=== PATIENT | male | born 1965 | race Caucasian/White ===

== ENCOUNTER 2016-11-24 18:33 | Emergency (ER) | payer OTHER ==
[~2016-11-24] VITALS: Ht 180.3 cm; Wt 111.3 kg
[~2016-11-24 18:33] MED LIST: AMBIEN5 MG PO; AMOXICILLIN500 M1 PO; AMRIX15 MG PO; AUGMENTIN875 MG PO; CLINDAMYCIN HC150 MG PO; CLINDAMYCIN HC300 MG PO; DICLOFENAC SODI75 MG PO; FLEXERIL10 MG PO; HYDROCODON-ACE1 EAC7 PO; LORTAB 5-325 M1 EACH PO; LUNESTA1 MG PO; MOTRIN800 MG PO; NEURONTIN100 MG PO; NEURONTIN300 MG PO; NEURONTIN600 MG PO; NORCO 5/3251 TABLET PO; OMEPRAZOLE40 M1 PO; OXYCODONE HCL10 MG PO; OXYCODONE HCL15 MG PO; PERCOCET 5/31 TABLET PO; PERCOCET 7.5-31 EACH PO; PERCOCET 7.5-51 EACH PO; PERIDEX1 ML MM; ROXICODONE5 MG PO; VALIUM5 MG PO; VYVANSE30 MG PO; VYVANSE50 MG PO; XANAX0.5 MG PO; ZOLOFT100 MG PO; ZOLOFT50 MG PO
[2016-11-24 22:46] LABS: EOSINOPHIL (%) 1.3 % (0-5); EOSINOPHIL COUNT 0.1 K/uL (0-0.3); HEMATOCRIT 45.8 % (38.0-50.0); IMMATURE GRANULOCYTE (%) 0.5 % (0.0-0.7); LYMPHOCYTE COUNT 2.8 K/uL (1.0-2.8); MCH 30.8 PG (29.0-34.0); MCHC 32.5 G/DL (30.0-36.0); MCV 94.6 FL (86-99); MEAN PLAT.VOLUME 10.2 uM^3 (9.0-12.4); MONOCYTE COUNT 0.7 K/uL (0-0.8); NEUTROPHIL (%) 52.3 % (45-76); PLATELET COUNT 270 K/uL (156-360); RBC DIS.WIDTH-CV 13.7 % (11.8-14.6); RBC DIS.WIDTH-SD 47.9 % (39-53); RED BLOOD COUNT 4.84 M/uL (4.00-5.50); WHITE BLOOD COUNT 7.7 K/uL (4.1-10.2)
[2016-11-24 22:56] LABS: CHLORIDE 103 mEq/L (99-109); POTASSIUM 4.2 mEq/L (3.7-5.4); SODIUM 139 mEq/L (136-147)
[2016-11-24 22:58] LABS: GLUCOSE 85 mg/dL (70-99)
[2016-11-24 22:59] LABS: ANION GAP 11 MEQ/L (2-14)
[2016-11-24 23:01] LABS: GFR ESTIMATE (CALCULATED) 53 mL/min/
[2016-11-24 23:02] LABS: UREA NITROGEN (BUN) 13 mg/dL (9-23)
[2016-11-24 23:08] LABS: TROP-I INTERPRETATION NEGATIVE; TROPONIN-I < 0.01 ng/mL (0.0-0.30)
[2016-11-24] MEDS ORDERED: XANAX0.5 MG PO (23:19)
[2016-11-24] MEDS ORDERED: KADIAN10 MG PO (23:25)
[2016-11-24 23:26] VITALS: BP 127/93
== END 2016-11-24 23:31 | disposition home or self-care (01) ==
LOC: EME 18:33
PROVIDERS: Emergency Medicine
DX: F41.0 Panic disorder [episodic paroxysmal anxiety] (principal); G89.29 Other chronic pain; M25.561 Pain in right knee; M25.562 Pain in left knee; Z63.4 Disappearance and death of family member; Z96.652 Presence of left artificial knee joint
CPT/HCPCS: 71020; 73564; 80048; 84484; 85025; 93005; 99281; 99284; J2270

== ENCOUNTER 2016-12-23 01:44 | Emergency (ER) | payer OTHER ==
[~2016-12-23] VITALS: Ht 180.3 cm; Wt 112.3 kg
[~2016-12-23 01:44] MED LIST changes: +KADIAN10 MG PO
[2016-12-23 02:51] LABS: HEMATOCRIT 41.9 % (38.0-50.0); MCH 31.7 PG (29.0-34.0); MCHC 33.7 G/DL (30.0-36.0); MCV 94.2 FL (86-99); MEAN PLAT.VOLUME 9.9 uM^3 (9.0-12.4); PLATELET COUNT 252 K/uL (156-360); RBC DIS.WIDTH-CV 13.6 % (11.8-14.6); RED BLOOD COUNT 4.45 M/uL (4.00-5.50); WHITE BLOOD COUNT 5.7 K/uL (4.1-10.2)
[2016-12-23 03:02] LABS: CHLORIDE 107 mEq/L (99-109); MAGNESIUM 2.1 mg/dL (1.3-2.7); POTASSIUM 4.4 mEq/L (3.7-5.4); SODIUM 140 mEq/L (136-147)
[2016-12-23 03:04] LABS: GLUCOSE 91 mg/dL (70-99)
[2016-12-23 03:05] LABS: ANION GAP 9 MEQ/L (2-14)
[2016-12-23 03:06] LABS: TOTAL BILIRUBIN 0.2 mg/dL (0.0-1.0)
[2016-12-23 03:08] LABS: ALKALINE PHOSPHATASE 66 IU/L (3-129); GFR ESTIMATE (CALCULATED) > 59 mL/min/
[2016-12-23 03:09] LABS: UREA NITROGEN (BUN) 8 mg/dL (9-23)
[2016-12-23 03:31] VITALS: BP 104/90
== END 2016-12-23 03:31 | disposition home or self-care (01) ==
LOC: EME 01:44
PROVIDERS: Emergency Medicine
DX: G25.81 Restless legs syndrome (principal); G89.29 Other chronic pain; M25.461 Effusion, right knee; Z76.5 Malingerer [conscious simulation]
CPT/HCPCS: 80053; 83735; 84100; 85027; 99281; 99283; J1885

== ENCOUNTER 2016-12-31 21:15 | Emergency (ER) | payer OTHER ==
[~2016-12-31] VITALS: Ht 180.3 cm; Wt 113.1 kg
[2016-12-31] MEDS ORDERED: OXYCONTIN10 MG PO (21:55)
[2016-12-31] MEDS ORDERED: KLONOPIN0.5 M1 PO (21:55)
[2016-12-31 22:25] VITALS: BP 159/103
== END 2016-12-31 22:26 | disposition home or self-care (01) ==
LOC: EME 21:15
DX: M17.11 Unilateral primary osteoarthritis, right knee (principal); F41.9 Anxiety disorder, unspecified
CPT/HCPCS: 99281; 99284

== ENCOUNTER 2017-03-20 16:23 | Emergency (ER) | payer OTHER ==
[~2017-03-20] VITALS: Ht 180.3 cm; Wt 118.1 kg
[~2017-03-20 16:23] MED LIST changes: +KLONOPIN0.5 M1 PO; +OXYCONTIN10 MG PO
[2017-03-20 17:31] VITALS: BP 144/89
== END 2017-03-20 17:49 | disposition home or self-care (01) ==
LOC: EME 16:23
DX: G57.92 Unspecified mononeuropathy of left lower limb (principal); G25.81 Restless legs syndrome; Z96.652 Presence of left artificial knee joint
CPT/HCPCS: 99281; 99284; J3360

== ENCOUNTER 2017-03-24 08:07 | Emergency (ER) | payer OTHER ==
[~2017-03-24] VITALS: Ht 180.3 cm; Wt 118.3 kg
[2017-03-24] MEDS ORDERED: PERCOCET 5/31 TABLET PO (09:04)
[2017-03-24 10:00] LABS: CHLORIDE 105 mEq/L (99-109); POTASSIUM 4.4 mEq/L (3.7-5.4); SODIUM 140 mEq/L (136-147)
[2017-03-24 10:01] LABS: MAGNESIUM 2.1 mg/dL (1.3-2.7)
[2017-03-24 10:02] LABS: GLUCOSE 105 mg/dL (70-99)
[2017-03-24 10:03] LABS: ANION GAP 10 MEQ/L (2-14)
[2017-03-24 10:06] LABS: GFR ESTIMATE (CALCULATED) > 59 mL/min/
[2017-03-24 10:07] LABS: UREA NITROGEN (BUN) 11 mg/dL (9-23)
[2017-03-24 11:01] VITALS: BP 144/98
== END 2017-03-24 11:02 | disposition home or self-care (01) ==
LOC: EME 08:07
PROVIDERS: Physician Assistant
DX: M62.831 Muscle spasm of calf (principal); G25.81 Restless legs syndrome; F90.9 Attention-deficit hyperactivity disorder, unspecified type; Z96.652 Presence of left artificial knee joint
CPT/HCPCS: 80048; 83735; 99281; 99284; J2060

== ENCOUNTER 2017-04-02 03:38 | Emergency (ER) | payer OTHER ==
[~2017-04-02] VITALS: Ht 180.3 cm; Wt 117.8 kg
[2017-04-02] MEDS ORDERED: VALIUM2 MG PO (04:22)
[2017-04-02 04:51] VITALS: BP 133/93
== END 2017-04-02 04:56 | disposition home or self-care (01) ==
LOC: EME 03:38
DX: G25.81 Restless legs syndrome (principal)
CPT/HCPCS: 99281; 99284; J2060

== ENCOUNTER 2017-04-11 02:09 | Emergency (ER) | payer OTHER ==
[~2017-04-11] VITALS: Ht 180.3 cm; Wt 121.2 kg
[~2017-04-11 02:09] MED LIST changes: +VALIUM2 MG PO
[2017-04-11 03:36] VITALS: BP 102/90
== END 2017-04-11 03:36 | disposition home or self-care (01) ==
LOC: EME 02:09
DX: R25.2 Cramp and spasm (principal); G25.81 Restless legs syndrome
CPT/HCPCS: 99281; 99283; J1885; Q0177

== ENCOUNTER 2017-06-26 15:46 | Emergency (ER) | payer OTHER | END 2017-06-26 16:34 | disposition left against medical advice (07) | LOC: EME 15:46 | DX: K04.7 Periapical abscess without sinus (principal); Z53.21 Procedure and treatment not carried out due to patient leaving prior to being seen by health care provider ==

== ENCOUNTER 2017-08-19 21:21 | Emergency (ER) | payer OTHER ==
[~2017-08-19] VITALS: Ht 180.3 cm; Wt 114.0 kg
[2017-08-20] MEDS ORDERED: PREDNISONE20 MG PO (00:12)
[2017-08-20] MEDS ORDERED: LIDODERM 5% P1 PATCH TD (00:16)
[2017-08-20 00:22] VITALS: BP 124/77
== END 2017-08-20 00:23 | disposition home or self-care (01) ==
LOC: EME 21:21
DX: G89.29 Other chronic pain (principal); M54.2 Cervicalgia; M25.561 Pain in right knee; W00.0XXA Fall on same level due to ice and snow, initial encounter; M47.892 Other spondylosis, cervical region
CPT/HCPCS: 72040; 99281; 99284; J7512

== ENCOUNTER 2017-08-22 15:43 | Emergency (ER) | payer OTHER ==
[~2017-08-22] VITALS: Ht 180.3 cm; Wt 113.4 kg
[~2017-08-22 15:43] MED LIST changes: +LIDODERM 5% P1 PATCH TD; +PREDNISONE20 MG PO
[2017-08-22] MEDS ORDERED: LIDODERM 5% P1 PATCH TD (17:47)
[2017-08-22] MEDS ORDERED: PREDNISONE20 MG PO (17:47)
[2017-08-22] MEDS ORDERED: GABAPENTIN100 MG PO (17:47)
[2017-08-22 18:23] VITALS: BP 103/81
== END 2017-08-22 18:25 | disposition home or self-care (01) ==
LOC: EME 15:43
DX: M54.2 Cervicalgia (principal); G89.29 Other chronic pain; Z76.0 Encounter for issue of repeat prescription; Z88.6 Allergy status to analgesic agent
CPT/HCPCS: 99281; 99284; J7512

== ENCOUNTER 2017-10-10 17:04 | Inpatient (IN) | payer OTHER ==
[~2017-10-10] VITALS: Ht 180.3 cm; Wt 117.3 kg
[~2017-10-10 17:04] MED LIST changes: -AMRIX15 MG PO; +GABAPENTIN100 MG PO; -LUNESTA1 MG PO; +LUNESTA3 MG PO
[2017-10-10 19:00] LABS: HEMATOCRIT 39.1 % (38.0-50.0); HEMOGLOBIN 13.6 G/DL (12.5-16.6); MCH 33.7 PG (29.0-34.0); MCHC 34.8 G/DL (30.0-36.0); PLATELET COUNT 154 K/uL (156-360); RBC DIS.WIDTH-CV 13.5 % (11.8-14.6); RBC DIS.WIDTH-SD 48.8 % (39-53); RED BLOOD COUNT 4.03 M/uL (4.00-5.50); WHITE BLOOD COUNT 7.4 K/uL (4.1-10.2)
[2017-10-10 19:11] LABS: PTT 26.8 SEC (25-37)
[2017-10-10 19:14] LABS: CHLORIDE 103 mEq/L (99-109); SODIUM 136 mEq/L (136-147)
[2017-10-10 19:16] LABS: GLUCOSE 81 mg/dL (70-99)
[2017-10-10 19:19] LABS: CREATININE 2.3 mg/dL (0.6-1.3); GFR ESTIMATE (CALCULATED) 32 mL/min/ (58.99-99999)
[2017-10-10 19:20] LABS: UREA NITROGEN (BUN) 27 mg/dL (9-23)
[2017-10-10 19:23] LABS: TROP-I INTERPRETATION NEGATIVE; TROPONIN-I < 0.01 ng/mL (0.0-0.30)
[2017-10-10] MEDS ORDERED: CORRECTOL5 M1 PO (21:02)
[2017-10-10] MEDS ORDERED: GABAPENTIN600 MG PO (21:04)
[2017-10-10] MEDS ORDERED: FOLIC ACID0.4 MG PO (21:06)
[2017-10-10] MEDS ORDERED: MORPHINE SULFAT15 MG PO (21:07)
[2017-10-10] MEDS ORDERED: ATARAX,VISTARIL50 MG PO (21:10)
[2017-10-10] MEDS ORDERED: CLONAZEPAM1 MG PO (21:12)
[2017-10-10] MEDS ORDERED: REQUIP0.5 MG PO (21:13)
[2017-10-10] MEDS ORDERED: ZESTRIL40 MG PO (21:13)
[2017-10-10 21:40] LABS: MAGNESIUM 2.4 mg/dL (1.3-2.7)
[2017-10-10 22:00] VITALS: BP 120/75
[2017-10-10 23:48] VITALS: BP 113/56
[2017-10-11 04:14] VITALS: BP 128/69
[2017-10-11 06:59] LABS: HEMATOCRIT 37.9 % (38.0-50.0); HEMOGLOBIN 12.5 G/DL (12.5-16.6); MCH 32.7 PG (29.0-34.0); MCV 99.2 FL (86-99); PLATELET COUNT 137 K/uL (156-360); RBC DIS.WIDTH-CV 13.8 % (11.8-14.6); RBC DIS.WIDTH-SD 50.4 % (39-53); RED BLOOD COUNT 3.82 M/uL (4.00-5.50); WHITE BLOOD COUNT 5.4 K/uL (4.1-10.2)
[2017-10-11 07:28] LABS: ALBUMIN 3.4 G/DL (3.2-4.8); CHLORIDE 109 MEQ/L (99-109); GFR ESTIMATE (CALCULATED) 45 mL/min/ (58.99-99999); PHOSPHORUS 3.3 mg/dL (2.5-4.9); POTASSIUM 4.4 MEQ/L (3.7-5.4); SODIUM 140 MEQ/L (136-147); UREA NITROGEN (BUN) 22 mg/dL (9-23)
[2017-10-11 07:29] LABS: CREATININE 1.7 MG/DL (0.6-1.3); GLUCOSE 109 mg/dL (70-99)
[2017-10-11 07:39] VITALS: BP 109/64
[2017-10-11 11:28] VITALS: BP 111/59
[2017-10-11 15:39] VITALS: BP 112/71
[2017-10-11 19:20] VITALS: BP 121/72
[2017-10-11 22:34] VITALS: BP 132/81
[2017-10-12] VITALS (9 sets, daily range): BP systolic 119–167; BP diastolic 73–95
[2017-10-12 04:37] LABS: APPEARANCE CLEAR ((CLEAR)); BILIRUBIN NEGATIVE; BLOOD NEGATIVE; COLOR STRAW ((YELLOW)); GLUCOSE (STRIP) NEGATIVE; KETONES NEGATIVE; LEUKOCYTES NEGATIVE; NITRITE NEGATIVE; PROTEIN (STRIP) NEGATIVE; SPECIFIC GRAVITY 1.005 (1.000-1.030); UCUL ADDED? NO; UROBILINOGEN 0.2 MG/DL (0.2-1.0)
[2017-10-12 04:54] LABS: BENZODIAZEPINES, URINE SCREEN POSITIVE (200 ng/mL)
[2017-10-12 06:27] LABS: HEMATOCRIT 37.1 % (38.0-50.0); HEMOGLOBIN 12.4 G/DL (12.5-16.6); MCH 33.5 PG (29.0-34.0); MCHC 33.4 G/DL (30.0-36.0); MCV 100.3 FL (86-99); PLATELET COUNT 120 K/uL (156-360); RBC DIS.WIDTH-CV 13.5 % (11.8-14.6); RBC DIS.WIDTH-SD 50.2 % (39-53); WHITE BLOOD COUNT 4.4 K/uL (4.1-10.2)
[2017-10-12 06:58] LABS: ALBUMIN 3.2 G/DL (3.2-4.8); ALKALINE PHOSPHATASE 44 IU/L (3-129); ALT (GPT) 22 IU/L (3-49); AST (GOT) 17 IU/L (2-34); CHLORIDE 108 MEQ/L (99-109); GFR ESTIMATE (CALCULATED) > 59 mL/min/ (58.99-99999); GLUCOSE 83 mg/dL (70-99); MAGNESIUM 1.9 mg/dl (1.3-2.7); POTASSIUM 5.1 MEQ/L (3.7-5.4); SODIUM 139 MEQ/L (136-147); TOTAL BILIRUBIN 0.3 MG/DL (0.0-1.0); TOTAL PROTEIN 5.7 G/DL (6.4-8.3); UREA NITROGEN (BUN) 14 mg/dL (9-23)
[2017-10-12 07:06] LABS: CREATININE 1.1 MG/DL (0.6-1.3)
[2017-10-13] VITALS (7 sets, daily range): BP systolic 118–154; BP diastolic 74–95
[2017-10-13] MEDS ORDERED: OXYCODONE HCL10 MG PO (11:10)
[2017-10-13] MEDS ORDERED: AMLODIPINE BESYL5 MG PO (12:09)
== END 2017-10-13 13:15 | disposition home or self-care (01) | DRG 683 ==
LOC: EME 17:04 → 2EAST 20:37 → EDOF 20:37 → ENRESERV 20:41 → 2EAST 21:52
PROVIDERS: Internal Medicine; Nurse Practitioner Acute Care; Nurse Practitioner Adult Health
DX: N17.9 Acute kidney failure, unspecified (principal); R55 Syncope and collapse; G89.29 Other chronic pain; S09.90XA Unspecified injury of head, initial encounter; S40.019A Contusion of unspecified shoulder, initial encounter; W07.XXXA Fall from chair, initial encounter; F90.9 Attention-deficit hyperactivity disorder, unspecified type; G25.81 Restless legs syndrome; M19.019 Primary osteoarthritis, unspecified shoulder; Z96.652 Presence of left artificial knee joint; Z79.899 Other long term (current) drug therapy; Z79.891 Long term (current) use of opiate analgesic; E80.1 Porphyria cutanea tarda; Z68.36 Body mass index [BMI] 36.0-36.9, adult; F43.10 Post-traumatic stress disorder, unspecified; I10 Essential (primary) hypertension
CPT/HCPCS: 70450; 70551; 71046; 72125; 73030; 80048; 80053; 80069; 80306 90; 81003; 83735; 84484; 85027; 85610; 85730; 93005; 93880; 95819; 99281; 99285; J1644; J2270; J7030; Q0177

== ENCOUNTER 2017-10-18 17:13 | Emergency (ER) | payer OTHER ==
[~2017-10-18] VITALS: Ht 180.3 cm; Wt 114.3 kg
[~2017-10-18 17:13] MED LIST changes: +AMLODIPINE BESYL5 MG PO; +ATARAX,VISTARIL50 MG PO; +CLONAZEPAM1 MG PO; +CORRECTOL5 M1 PO; +FOLIC ACID0.4 MG PO; +GABAPENTIN600 MG PO; +MORPHINE SULFAT15 MG PO; +REQUIP0.5 MG PO; +ZESTRIL40 MG PO
[2017-10-18 19:12] LABS: HEMATOCRIT 40.2 % (38.0-50.0); HEMOGLOBIN 14.1 G/DL (12.5-16.6); MCH 34.1 PG (29.0-34.0); MCHC 35.1 G/DL (30.0-36.0); MCV 97.1 FL (86-99); RBC DIS.WIDTH-CV 13.5 % (11.8-14.6); RBC DIS.WIDTH-SD 48.3 % (39-53); RED BLOOD COUNT 4.14 M/uL (4.00-5.50); WHITE BLOOD COUNT 7.8 K/uL (4.1-10.2)
[2017-10-18 19:16] LABS: PLATELET COUNT 161 K/uL (156-360)
[2017-10-18 19:22] LABS: CHLORIDE 104 mEq/L (99-109); POTASSIUM 4.1 mEq/L (3.7-5.4); SODIUM 140 mEq/L (136-147)
[2017-10-18 19:23] LABS: GLUCOSE 88 mg/dL (70-99)
[2017-10-18 19:27] LABS: CREATININE 1.3 mg/dL (0.6-1.3); GFR ESTIMATE (CALCULATED) > 59 mL/min/ (58.99-99999)
[2017-10-18 19:28] LABS: UREA NITROGEN (BUN) 11 mg/dL (9-23)
[2017-10-18 19:37] LABS: APPEARANCE CLEAR ((CLEAR)); BILIRUBIN NEGATIVE; BLOOD NEGATIVE; COLOR YELLOW ((YELLOW)); GLUCOSE (STRIP) NEGATIVE; KETONES NEGATIVE; LEUKOCYTES TRACE; NITRITE NEGATIVE; PROTEIN (STRIP) NEGATIVE; SPECIFIC GRAVITY 1.011 (1.000-1.030); UROBILINOGEN 0.2 MG/DL (0.2-1.0)
[2017-10-18 19:42] LABS: BACTERIA RARE /HPF; EPITHELIAL CELLS RARE /HPF; HYALINE CASTS 30-40 /LPF; MUCUS 3+ /LPF; RED BLOOD CELLS 0-5 /HPF (0-5)
[2017-10-18 19:57] LABS: AMPHETAMINE NEGATIVE (500 ng/mL); BARBITURATES NEGATIVE (200 ng/mL); BENZODIAZEPINES PRESUMPTIVE POSITIVE (150 ng/mL); BUPRENORPHINE NEGATIVE (10 ng/mL); COCAINE NEGATIVE (150 ng/mL); METHADONE NEGATIVE (200 ng/mL); METHAMPHETAMINE NEGATIVE (500 ng/mL); OPIATES (MORPHINE) NEGATIVE (100 ng/mL); OXYCODONE NEGATIVE (100 ng/mL); PHENCYCLIDINE NEGATIVE (25 ng/mL); PROPOXYPHENE NEGATIVE (300 ng/mL); THC CANNABINOIDS PRESUMPTIVE POSITIVE (50 ng/mL); TRICYCLIC ANTIDEPRESSANTS PRESUMPTIVE POSITIVE (300 ng/mL)
[2017-10-18 20:42] LABS: BENZODIAZEPINES, URINE SCREEN POSITIVE (200 ng/mL)
[2017-10-18] MEDS ORDERED: ANTIVERT25 MG PO (21:23)
[2017-10-18 22:02] VITALS: BP 152/78
== END 2017-10-18 22:12 | disposition home or self-care (01) ==
LOC: EME 17:13
PROVIDERS: Physician Assistant
DX: G89.29 Other chronic pain (principal); M25.561 Pain in right knee; M17.11 Unilateral primary osteoarthritis, right knee; R42 Dizziness and giddiness; F43.10 Post-traumatic stress disorder, unspecified; F90.9 Attention-deficit hyperactivity disorder, unspecified type; G25.81 Restless legs syndrome; Z96.652 Presence of left artificial knee joint
CPT/HCPCS: 80048; 81003; 84999; 85027; 85379; 93005; 93971; 99281; 99285; J1100; J2270

== ENCOUNTER 2017-11-03 15:28 | Emergency (ER) | payer OTHER ==
[~2017-11-03] VITALS: Ht 180.3 cm; Wt 111.0 kg
[~2017-11-03 15:28] MED LIST changes: +ANTIVERT25 MG PO
[2017-11-03 17:23] LABS: HEMATOCRIT 45.9 % (38.0-50.0); HEMOGLOBIN 16.4 G/DL (12.5-16.6); MCH 33.7 PG (29.0-34.0); MCHC 35.7 G/DL (30.0-36.0); MCV 94.3 FL (86-99); PLATELET COUNT 231 K/uL (156-360); RBC DIS.WIDTH-CV 13.1 % (11.8-14.6); RBC DIS.WIDTH-SD 44.9 % (39-53); RED BLOOD COUNT 4.87 M/uL (4.00-5.50); WHITE BLOOD COUNT 6.9 K/uL (4.1-10.2)
[2017-11-03 17:30] LABS: APPEARANCE CLEAR ((CLEAR)); BILIRUBIN NEGATIVE; BLOOD NEGATIVE; COLOR YELLOW ((YELLOW)); GLUCOSE (STRIP) NEGATIVE; KETONES 5; LEUKOCYTES NEGATIVE; NITRITE NEGATIVE; PROTEIN (STRIP) NEGATIVE; SPECIFIC GRAVITY 1.018 (1.000-1.030); UCUL ADDED? NO; UROBILINOGEN 0.2 MG/DL (0.2-1.0)
[2017-11-03 17:31] LABS: ALBUMIN 4.6 g/dL (3.2-4.8); CHLORIDE 107 mEq/L (99-109); POTASSIUM 4.2 mEq/L (3.7-5.4); SODIUM 140 mEq/L (136-147)
[2017-11-03 17:34] LABS: GLUCOSE 91 mg/dL (70-99); TOTAL PROTEIN 8.7 g/dL (6.4-8.3)
[2017-11-03 17:36] LABS: TOTAL BILIRUBIN 0.7 mg/dL (0.0-1.0)
[2017-11-03 17:37] LABS: ALKALINE PHOSPHATASE 76 IU/L (3-129); CREATININE 1.2 mg/dL (0.6-1.3); GFR ESTIMATE (CALCULATED) > 59 mL/min/ (58.99-99999)
[2017-11-03 17:38] LABS: UREA NITROGEN (BUN) 14 mg/dL (9-23)
[2017-11-03 17:39] LABS: AST (GOT) 36 IU/L (2-34)
[2017-11-03 17:40] LABS: ALT (GPT) 49 IU/L (3-49)
[2017-11-03] MEDS ORDERED: MEDROL DOSEPAK4 MG PO (17:43)
[2017-11-03] MEDS ORDERED: FLEXERIL10 MG PO (17:43)
[2017-11-03 18:16] VITALS: BP 138/92
== END 2017-11-03 18:16 | disposition home or self-care (01) ==
LOC: EME 15:28
PROVIDERS: Physician Assistant
DX: M54.5 Low back pain (principal); I10 Essential (primary) hypertension; Z96.652 Presence of left artificial knee joint; Z88.6 Allergy status to analgesic agent; Z88.8 Allergy status to other drugs, medicaments and biological substances
CPT/HCPCS: 80053; 81003; 85027; 99281; 99284

== ENCOUNTER 2017-11-11 16:29 | Emergency (ER) | payer OTHER ==
[~2017-11-11] VITALS: Ht 180.3 cm; Wt 113.9 kg
[~2017-11-11 16:29] MED LIST changes: +MEDROL DOSEPAK4 MG PO
[2017-11-11] MEDS ORDERED: FREEZE IT RE113.4 GM TP (18:35)
[2017-11-11 19:08] VITALS: BP 130/88
== END 2017-11-11 19:10 | disposition home or self-care (01) ==
LOC: EME 16:29
DX: G89.29 Other chronic pain (principal); M25.511 Pain in right shoulder; M25.561 Pain in right knee; Z96.652 Presence of left artificial knee joint; Z88.6 Allergy status to analgesic agent; Z88.8 Allergy status to other drugs, medicaments and biological substances
CPT/HCPCS: 99281; 99284

== ENCOUNTER 2017-11-18 15:39 | Emergency (ER) | payer OTHER ==
[~2017-11-18] VITALS: Ht 180.3 cm; Wt 109.9 kg
[~2017-11-18 15:39] MED LIST changes: +FREEZE IT RE113.4 GM TP
[2017-11-18 17:32] LABS: BASOPHIL (%) 0.6 % (0-1); EOSINOPHIL (%) 1.6 % (0-5); EOSINOPHIL COUNT 0.1 K/uL (0-0.3); HEMATOCRIT 41.5 % (38.0-50.0); HEMOGLOBIN 14.6 G/DL (12.5-16.6); IMMATURE GRANULOCYTE (%) 0.3 % (0.0-0.7); LYMPHOCYTE COUNT 2.8 K/uL (1.0-2.8); MCH 33.4 PG (29.0-34.0); MCHC 35.2 G/DL (30.0-36.0); MONOCYTE (%) 9.3 % (3-12); MONOCYTE COUNT 0.6 K/uL (0-0.8); NEUTROPHIL (%) 47.2 % (45-76); NEUTROPHIL COUNT 3.2 K/uL (1.8-6.4); PLATELET COUNT 171 K/uL (156-360); RBC DIS.WIDTH-CV 12.9 % (11.8-14.6); RBC DIS.WIDTH-SD 45.3 % (39-53); RED BLOOD COUNT 4.37 M/uL (4.00-5.50); WHITE BLOOD COUNT 6.9 K/uL (4.1-10.2)
[2017-11-18 17:41] LABS: ALBUMIN 4.5 g/dL (3.2-4.8); CHLORIDE 105 mEq/L (99-109); POTASSIUM 3.9 mEq/L (3.7-5.4); SODIUM 139 mEq/L (136-147)
[2017-11-18 17:44] LABS: GLUCOSE 72 mg/dL (70-99)
[2017-11-18 17:45] LABS: TOTAL BILIRUBIN 0.8 mg/dL (0.0-1.0)
[2017-11-18 17:46] LABS: SERUM ETHYL ALCOHOL < 10 mg/dL
[2017-11-18 17:47] LABS: ALKALINE PHOSPHATASE 75 IU/L (3-129); CREATININE 1.1 mg/dL (0.6-1.3); GFR ESTIMATE (CALCULATED) > 59 mL/min/ (58.99-99999)
[2017-11-18 17:48] LABS: UREA NITROGEN (BUN) 12 mg/dL (9-23)
[2017-11-18 17:49] LABS: AST (GOT) 26 IU/L (2-34)
[2017-11-18 17:50] LABS: ALT (GPT) 32 IU/L (3-49)
[2017-11-18 19:16] LABS: AMPHETAMINE NEGATIVE (500 ng/mL); BARBITURATES NEGATIVE (200 ng/mL); BENZODIAZEPINES NEGATIVE (150 ng/mL); BUPRENORPHINE NEGATIVE (10 ng/mL); COCAINE NEGATIVE (150 ng/mL); METHADONE NEGATIVE (200 ng/mL); METHAMPHETAMINE NEGATIVE (500 ng/mL); OPIATES (MORPHINE) NEGATIVE (100 ng/mL); OXYCODONE NEGATIVE (100 ng/mL); PHENCYCLIDINE NEGATIVE (25 ng/mL); PROPOXYPHENE NEGATIVE (300 ng/mL); THC CANNABINOIDS NEGATIVE (50 ng/mL); TRICYCLIC ANTIDEPRESSANTS NEGATIVE (300 ng/mL)
[2017-11-18] MEDS ORDERED: OXAYDO5 MG PO (19:31)
[2017-11-18 20:22] VITALS: BP 116/77
== END 2017-11-18 20:22 | disposition home or self-care (01) ==
LOC: EME 15:39
PROVIDERS: Emergency Medicine
DX: F32.9 Major depressive disorder, single episode, unspecified (principal); F41.9 Anxiety disorder, unspecified; Z91.14 Patient's other noncompliance with medication regimen; M25.561 Pain in right knee; G89.29 Other chronic pain; I10 Essential (primary) hypertension
CPT/HCPCS: 80053; 85025; 90839; 99281; 99285; G0480

== ENCOUNTER 2018-02-11 14:27 | Emergency (ER) | payer SELFPAY ==
[~2018-02-11] VITALS: Ht 180.3 cm; Wt 110.2 kg
[~2018-02-11 14:27] MED LIST changes: +OXAYDO5 MG PO
[2018-02-11 15:57] LABS: HEMATOCRIT 45.7 % (38.0-50.0); HEMOGLOBIN 15.7 G/DL (12.5-16.6); MCH 32.7 PG (29.0-34.0); MCHC 34.4 G/DL (30.0-36.0); MCV 95.2 FL (86-99); PLATELET COUNT 195 K/uL (156-360); RBC DIS.WIDTH-SD 46.2 % (39-53); WHITE BLOOD COUNT 6.2 K/uL (4.1-10.2)
[2018-02-11 16:24] LABS: CHLORIDE 104 mEq/L (99-109); POTASSIUM 4.8 mEq/L (3.7-5.4); SODIUM 140 mEq/L (136-147)
[2018-02-11 16:26] LABS: GLUCOSE 94 mg/dL (70-99)
[2018-02-11 16:30] LABS: CREATININE 1.1 mg/dL (0.6-1.3); GFR ESTIMATE (CALCULATED) > 59 mL/min/ (58.99-99999)
[2018-02-11 16:31] LABS: UREA NITROGEN (BUN) 13 mg/dL (9-23)
[2018-02-11] MEDS ORDERED: OXYCODONE HCL10 MG PO (16:40)
[2018-02-11] MEDS ORDERED: NORVASC10 MG PO (16:40)
[2018-02-11] MEDS ORDERED: PEN-VEE K,VEET500 MG PO (16:40)
[2018-02-11] MEDS ORDERED: KLONOPIN1 MG PO (16:40)
[2018-02-11 16:59] VITALS: BP 157/89
== END 2018-02-11 17:02 | disposition home or self-care (01) ==
LOC: EME 14:27 → EXP 14:27
PROVIDERS: Physician Assistant
DX: I10 Essential (primary) hypertension (principal); K08.89 Other specified disorders of teeth and supporting structures; M25.569 Pain in unspecified knee; G89.29 Other chronic pain; Z86.2 Personal history of diseases of the blood and blood-forming organs and certain disorders involving the immune mechanism; Z96.652 Presence of left artificial knee joint; Z85.9 Personal history of malignant neoplasm, unspecified; Z88.6 Allergy status to analgesic agent; Z88.8 Allergy status to other drugs, medicaments and biological substances
CPT/HCPCS: 80048; 85027; 99281; 99284

== ENCOUNTER 2018-02-16 12:10 | Emergency (ER) | payer OTHER ==
[~2018-02-16] VITALS: Ht 180.3 cm; Wt 111.9 kg
[~2018-02-16 12:10] MED LIST changes: +KLONOPIN1 MG PO; +NORVASC10 MG PO; +PEN-VEE K,VEET500 MG PO
[2018-02-16 12:58] LABS: HEMATOCRIT 42.5 % (38.0-50.0); HEMOGLOBIN 14.7 G/DL (12.5-16.6); MCH 32.9 PG (29.0-34.0); MCHC 34.6 G/DL (30.0-36.0); MCV 95.1 FL (86-99); PLATELET COUNT 204 K/uL (156-360); RBC DIS.WIDTH-CV 13.2 % (11.8-14.6); RBC DIS.WIDTH-SD 46.3 % (39-53); RED BLOOD COUNT 4.47 M/uL (4.00-5.50); WHITE BLOOD COUNT 6.9 K/uL (4.1-10.2)
[2018-02-16 13:21] LABS: CHLORIDE 107 mEq/L (99-109); POTASSIUM 4.5 mEq/L (3.7-5.4); SODIUM 139 mEq/L (136-147)
[2018-02-16 13:22] LABS: GLUCOSE 106 mg/dL (70-99)
[2018-02-16 13:26] LABS: CREATININE 1.1 mg/dL (0.6-1.3); GFR ESTIMATE (CALCULATED) > 59 mL/min/ (58.99-99999)
[2018-02-16 13:27] LABS: UREA NITROGEN (BUN) 13 mg/dL (9-23)
[2018-02-16 13:33] LABS: TROP-I INTERPRETATION NEGATIVE; TROPONIN-I < 0.01 ng/mL (0.0-0.30)
[2018-02-16] MEDS ORDERED: KLONOPIN1 MG PO (14:03)
[2018-02-16] MEDS ORDERED: OXYCODONE HCL10 MG PO (14:03)
[2018-02-16] MEDS ORDERED: FOLIC ACID0.4 MG PO (14:56)
[2018-02-16 15:31] LABS: TROP-I INTERPRETATION NEGATIVE; TROPONIN-I < 0.01 ng/mL (0.0-0.30)
[2018-02-16 16:00] VITALS: BP 143/99
== END 2018-02-16 16:03 | disposition home or self-care (01) ==
LOC: EME 12:10
PROVIDERS: Physician Assistant
DX: R07.89 Other chest pain (principal); F43.9 Reaction to severe stress, unspecified; I10 Essential (primary) hypertension; F41.9 Anxiety disorder, unspecified; Z85.9 Personal history of malignant neoplasm, unspecified; Z96.652 Presence of left artificial knee joint; Z88.6 Allergy status to analgesic agent; Z88.8 Allergy status to other drugs, medicaments and biological substances
CPT/HCPCS: 80048; 84484; 85027; 93005; 99281; 99284

== ENCOUNTER 2018-02-22 12:08 | Emergency (ER) | payer OTHER ==
[~2018-02-22] VITALS: Ht 180.3 cm; Wt 111.2 kg
[2018-02-22 12:12] VITALS: BP 164/88
[2018-02-22] MEDS ORDERED: PREDNISONE20 MG PO (13:08)
[2018-02-22] MEDS ORDERED: LIDODERM 5% P1 PATCH TD (13:08)
[2018-02-22] MEDS ORDERED: ATARAX,VISTARIL50 MG PO (13:08)
[2018-02-22] MEDS ORDERED: CLONIDINE HCL0.1 MG PO (14:25)
[2018-02-22] MEDS ORDERED: TRAZODONE HCL50 MG PO (14:25)
== END 2018-02-22 14:35 | disposition home or self-care (01) ==
LOC: EME 12:08
DX: G89.29 Other chronic pain (principal); F41.9 Anxiety disorder, unspecified; Z76.0 Encounter for issue of repeat prescription; I10 Essential (primary) hypertension; M25.561 Pain in right knee
CPT/HCPCS: 99281; 99283